=== PATIENT | male | born 1965 | race American Indian/Alaskan Native ===

== ENCOUNTER 2020-04-09 08:11 | Observation (INO) | payer OTHER ==
[2020-04-09] MEDS ORDERED: MORPHINE 4 MG/1 ML INJ IV ONE ×2 (08:51→11:34)
[2020-04-09] MEDS ORDERED: ONDANSETRON 4 MG/2 ML INJ IV ONE (08:51)
--- NOTE | 2020-04-09 08:57 | Emergency Department Report ---
ED Chest Pain HPI - General Chief Complaint: Chest Pain Stated Complaint: CP Time Seen by Provider: 04/09/20 08:28 Source: patient Mode of arrival: Ambulatory Limitations: No Limitations - History of Present Illness Initial Comments: This is a 55-year-old male who presents to the emergency department from home with complaint of lower chest and upper abdominal pain, shortness of breath, and nausea without vomiting. Patient says "I think it could be my pancreatitis again." The patient denies a history of gallstones, and admits to a history of some alcohol use, last drinking about 2 days ago. Overall the patient's symptoms have been going on for the past few weeks but worsened yesterday. He says that he was recently given divorce papers and that has "taken a toll on me." He has a past medical history of [id number] diabetes, hypert ension. Patient says that he took some Protonix, sucralfate and tramadol, that he was prescribed when he had previous pancreatitis, but it has not helped his symptoms. Currently he says that his pain is a 7 out of 10 in intensity. No obvious aggravating or alleviating factors. No recent travel or sick contacts at home. Patient mention that he was in his sister's presence in February and she was diagnosed with Covid, but he has not seen her since that time. - Related Data Allergies Allergy/AdvReac Type Severity Reaction Status Date / Time lisinopril Allergy Swelling Verified 04/09/20 08:14 Heart Score - HEART Score History: Slightly suspicious EKG: Normal Age: 45-65 Risk factors: 1-2 risk factors Troponin: < normal limit HEART Score: 2 - Critical Actions Critical Actions: 0-3 pts:0.9-1.7%risk of adverse cardiac event.Candidate for discharge ED Review of Systems ROS: Stated complaint: CP Other details as noted in HPI Comment: All other systems reviewed and negative Constitutional: denies: chills, fever Eyes: denies: eye pain, vision change ENT: denies: ear pain, throat pain Respiratory: shortness of breath. denies: cough Cardiovascular: chest pain. denies: palpitations Gastrointestinal: abdominal pain, nausea. denies: vomiting Genitourinary: denies: dysuria, discharge Musculoskeletal: denies: joint swelling, arthralgia Skin: denies: rash, lesions Neurological: denies: headache, weakness ED Past Medical Hx - Past Medical History Previous Medical History?: Yes Hx Hypertension: Yes Hx Diabetes: Yes - Surgical History Past Surgical History?: Yes Additional Surgical History: left finger - Social History Smoking Status: Never Smoker Substance Use Type: Alcohol ED Physical Exam - General Limitations: No Limitations - Other Other exam information: GENERAL: The patient is well-developed well-nourished. HENT: Normocephalic. Atraumatic. Patient has moist mucous membranes. EYES: Extraocular motions are intact. Pupils equal reactive to light bilaterally. NECK: Supple. Trachea is midline. CHEST/LUNGS: Clear to auscultation. There is no respiratory distress noted. HEART/CARDIOVASCULAR: Regular. There is no tachycardia. There is no murmur. ABDOMEN: Abdomen is soft. Upper abdominal tenderness to palpation. Patient has normal bowel sounds. SKIN: Skin is warm and dry. NEURO: The patient is awake, alert, and oriented. The patient is cooperative. The patient has no focal neurologic deficits. Normal speech. MUSCULOSKELETAL: There is no tenderness or deformity. ED Course Vital Signs 04/09/20 04/09/20 04/09/20 08:14 08:46 09:05 Temperature 97.9 F Pulse Rate 106 H 80 80 Respiratory 22 18 Rate Blood Pressure 154/97 Blood Pressure 150/88 [Left] O2 Sat by Pulse 99 100 Oximetry 04/09/20 09:38 Temperature Pulse Rate Respiratory 18 Rate Blood Pressure Blood Pressure [Left] O2 Sat by Pulse Oximetry JAKE score - Jake Score Age > 65: (0) No Aspirin use within the Past 7 Days: (0) No 3 or more CAD Risk Factors: (0) No 2 or more Angina events in past 24 hrs: (0) No Known CAD with more than 50% Stenosis: (0) No Elevated Cardiac Markers: (0) No ST Deviation Greater than 0.5mm: (0) No JAKE Score: 0 ED Medical Decision Making - Lab Data Result diagrams: 04/09/20 08:29 04/09/20 08:29 - EKG Data -: EKG Interpreted by Me EKG shows normal: sinus rhythm, axis, intervals, QRS complexes (Q waves to the inferior leads), ST-T waves Rate: normal - EKG Data When compared to previous EKG there are: previous EKG unavailable Interpretation: other (Sinus rhythm, normal axis, normal intervals, Q waves to the inferior leads.) - Radiology Data Radiology results: report reviewed, image reviewed interpreted by me: Chest x-ray does not show any acute process. There are no pleural effusions, obvious pneumonia and there is no pneumothorax. No significant cardiomegaly. Abdominal x-ray shows nonspecific nonobstructive bowel gas. CT ABDOMEN AND PELVIS WITH CONTRAST HISTORY: Abd pain, elevated lipase and LFTs. COMPARISON: None. TECHNIQUE: CT images of the abdomen and pelvis were obtained following administration of intravenous contrast. All CT scans at this location are performed using CT dose reduction for ALARA by means of automated exposure control. CONTRAST: 100 ml of intravenous contrast administered. FINDINGS: Lungs/bones: Lung bases are clear. No acute osseous abnormality. Abdomen/pelvis: There is severe hepatic steatosis with no focal mass identified. Considerable inflammatory changes seen about essentially the entire pancreas, with small fluid collection involving the tail measuring approximately 3.7 x 2.4 cm on image #58 of series #2. The remaining pancreatic parenchyma shows enhancement without clear necrosis. Several shoddy reactive lymph nodes are seen about the pancreas as well. No biliary ductal dilatation, CBD dilatation, pancreatic head mass, or obvious stone. The gallbladder, spleen, adrenals, kidneys, and proximal GI tract appear unremarkable except for mild secondary inflammatory change involving the duodenal C-loop. No bowel obstruction. There is a small fat- containing umbilical hernia. Urinary bladder is unremarkable. Prostate is slightly enlarged and indents the bladder base. No pelvic free fluid or acute colonic abnormality identified. IMPRESSION: 1. Acute pancreatitis with small fluid collection involving the pancreatic tail. No obvious obstructive stone or mass identified although there is severe hepatic steatosis. - Medical Decision Making This patient came in initially as a chest pain protocol, but during the HPI and physical examination the symptoms appear to be more upper abdominal. On top of that the patient says that it feels like previous pancreatitis. An EKG was done that does not have any morphology consistent with ST elevation myocardial infar ction. Chest and abdominal x-rays were completed and it did not show any acute process. Patient's labs do appear consistent with pancreatitis and/or gastrointestinal etiology as the patient has a lipase of 630 and elevated LFTs of [address] scan of the abdomen and pelvis with IV contrast shows acute pancreatitis with some fluid collection around the pancreatic tail. His vital signs have been reassuring throughout his ED course including being afebrile. He will be admitted to the hospital for further evaluation and treatment was accepted for admission by the hospitalist service. Critical Care Time: Yes Critical care time in (mins) excluding proc time.: 35 Critical care attestation.: If time is entered above; I have spent that time in minutes in the direct care of this critically ill patient, excluding procedure time. Critical care time was spent on this patient in doing his initial evaluation, multiple reevaluations, ordering and interpretation of labs and imaging, IV fluid resuscitation, IV analgesia, antiemetics, multiple discussions with the patient Critical Care Time: 35 minutes ED Disposition Clinical Impression: Transaminitis, Hepatic steatosis, Hyperglycemia Acute pancreatitis Qualifiers: Pancreatitis type: alcohol induced Acute pancreatitis complication: unspecified Qualified Code(s): K85.20 - Alcohol induced acute pancreatitis without necrosis or infection Hypertension Qualifiers: Hypertension type: essential hypertension Qualified Code(s): I10 - Essential (primary) hypertension Disposition: DC-09 OP ADMIT IP TO THIS HOSP Is pt being admited?: Yes Condition: Serious Referrals: [facility] [Other] - 3-5 Days Time of Disposition: 12:48
[2020-04-09 09:05] LABS: Basophils % (Auto) 0.5 % (0.0-1.8); Eosinophils % (Auto) 0.1 % (0.0-4.3); Hematocrit 45.8 % (35.5-45.6); Hemoglobin 15.7 gm/dl (11.8-15.2); Lymphocytes # (Auto) 0.8 K/mm3 (1.2-5.4); Lymphocytes % (Auto) 10.8 % (13.4-35.0); Mean Corpuscular HGB Conc 34 % (32-34); Mean Corpuscular Volume 89 fl (84-94); Monocytes # (Auto) 0.4 K/mm3 (0.0-0.8); Monocytes % (Auto) 5.8 % (0.0-7.3); Platelet Count 164 K/mm3 (140-440); Red Blood Count 5.16 M/mm3 (3.65-5.03)
--- NOTE | 2020-04-09 09:36 | XRay Report ---
ABDOMEN 3 VIEW(S) INDICATION / CLINICAL INFORMATION: Abd pain. Acute generalized abdominal pain COMPARISON: None available. FINDINGS: TUBES / LINES: None. BOWEL GAS PATTERN: Moderate colonic stool burden may be seen with constipation. No bowel obstruction. FREE AIR / EXTRALUMINAL GAS: None seen. ADDITIONAL FINDINGS: No significant additional findings. IMPRESSION: 1. Bowel findings as above. Signer Name: Vamsi Alex MD Signed: 04/09/2020 9:32 AM Workstation Name: [id number]
[2020-04-09 10:46] LABS: INR 0.96 (0.87-1.13)
[2020-04-09 10:56] LABS: BUN/Creatinine Ratio 8; Blood Urea Nitrogen 9 mg/dL (9-20); Calcium 9.7 mg/dL (8.4-10.2); Hemolysis Index 46
[2020-04-09] MEDS ORDERED: SODIUM CHLORIDE 0.9% 1000 ML 1,000 ML IV ONE (10:59)
[2020-04-09] MEDS ORDERED: INSULIN REGULAR, HUMAN 100 UNIT/ML 3ML VIAL IV SCH (11:00)
[2020-04-09 11:21] LABS: Albumin 4.6 g/dL (3.9-5); Bilirubin,Direct 0.2 mg/dL (0-0.2)
--- NOTE | 2020-04-09 11:31 | XRay Report ---
CHEST 1 VIEW INDICATION / CLINICAL INFORMATION: Chest Pain. COMPARISON: None available. FINDINGS: SUPPORT DEVICES: None. HEART / MEDIASTINUM: No significant abnormality. LUNGS / PLEURA: No significant pulmonary or pleural abnormality. No pneumothorax. ADDITIONAL FINDINGS: No significant additional findings. IMPRESSION: No acute pulmonary or pleural abnormality Signer Name: Obed Sutton MD FACR Signed: 04/09/2020 11:27 AM Workstation Name: [id number]
--- NOTE | 2020-04-09 12:43 | Cat Scan Report ---
CT ABDOMEN AND PELVIS WITH CONTRAST HISTORY: Abd pain, elevated lipase and LFTs. COMPARISON: None. TECHNIQUE: CT images of the abdomen and pelvis were obtained following administration of intravenous contrast. All CT scans at this location are performed using CT dose reduction for ALARA by means of automated exposure control. CONTRAST: 100 ml of intravenous contrast administered. FINDINGS: Lungs/bones: Lung bases are clear. No acute osseous abnormality. Abdomen/pelvis: There is severe hepatic steatosis with no focal mass identified. Considerable inflam matory changes seen about essentially the entire pancreas, with small fluid collection involving the tail measuring approximately 3.7 x 2.4 cm on image #58 of series #2. The remaining pancreatic parench yma shows enhancement without clear necrosis. Several shoddy reactive lymph nodes are seen about the pancreas as well. No biliary ductal dilatation, CBD dilatation, pancreatic head mass, or obvious ston e. The gallbladder, spleen, adrenals, kidneys, and proximal GI tract appear unremarkable except for mild secondary inflammatory change involving the duodenal C-loop. No bowel obstruction. There is a small fat-containing umbilical hernia. Urinary bladder is unremarkable. Prostate is slightly enlarged and indents the bladder base. No pelvi c free fluid or acute colonic abnormality identified. IMPRESSION: 1. Acute pancreatitis with small fluid collection involving the pancreatic tail. No obvious obstructi ve stone or mass identified although there is severe hepatic steatosis. Signer Name: Vamsi Alex MD Signed: 04/09/2020 12:38 PM Workstation Name: [id number]
--- NOTE | 2020-04-09 13:09 | History and Physical Report ---
History of Present Illness Date of examination: 04/09/20 Date of admission: 04/09/2020 Chief complaint: Abdominal pain and chest pain History of present illness: 55-year-old -[place]i male patient with significant past medical history of hypertension, diabetes mellitus, chronic alcohol use and with history of recurrent pancreatitis, presents to the emergency room with abdominal pain associated with nausea and some intermittent chest pain and generalized body pain intermittent for the last 1 to 2 weeks worse since yesterday. Patient has history of alcohol intake, quit for a few months but again started 2 days ago after he had some family issues. Mild nausea and vomiting and abdominal pain No history of fever no hematemesis melena or rectal bleeding Initial work-up in the emergency room is consistent with acute pancreatitis with elevated lipase and transaminases CT abdomen findings consistent with acute pancreatitis. Patient was also noted to have metabolic acidosis, hyponatremia and hyperglycemia. Past History Past Medical History: diabetes, GERD, hypertension, other (Chronic alcohol use, history of pancreatitis) Past Surgical History: Other (Finger surgery) Social history: alcohol abuse. denies: smoking, prescription drug abuse Family history: hypertension Medications and Allergies Allergies Allergy/AdvReac Type Severity Reaction Status Date / Time lisinopril Allergy Swelling Verified 04/09/20 08:14 Active Meds: Active Medications Insulin Human Regular (Humulin R) 4 unit IV ONCE CATIA Review of Systems Constitutional: weakness, no weight loss, no weight gain, no fever, no chills Ears, nose, mouth and throat: no nasal congestion, no nasal discharge Cardiovascular: chest pain, no orthopnea, no palpitations, no rapid/irregular heart beat, no edema, no shortness of breath Respiratory: no cough, no hemoptysis, no shortness of breath Gastrointestinal: abdominal pain, nausea, vomiting, no hematemesis, no melena Genitourinary Male: no dysuria, no hematuria Musculoskeletal: no neck stiffness, no neck pain, no myalgias, no arthritis Integumentary: no rash, no lesions Neurological: no seizures, no syncope, no tremors Psychiatric: no anxiety, no depression Endocrine: no cold intolerance, no polydipsia, no polyuria Hematologic/Lymphatic: no easy bruising, no easy bleeding Allergic/Immunologic: no urticaria, no allergic rhinitis Exam - Constitutional Vitals: Temp Pulse Resp BP Pulse Ox 97.9 F 80 18 150/88 100 04/09/20 08:14 10/22/20 09:05 04/09/20 09:38 04/09/20 08:46 04/09/20 08:46 General appearance: Present: mild distress, well-nourished - EENT Eyes: Present: PERRL, EOM intact - Neck Neck: Present: supple, normal ROM - Respiratory Respiratory effort: normal Respiratory: bilateral: diminished, negative: rales, rhonchi, wheezing - Cardiovascular Rhythm: regular Heart Sounds: Present: S1 & S2 - Extremities Extremities: no ischemia, No edema - Abdominal General gastrointestinal: Present: soft, tender (No guarding no rigidity), non- distended, normal bowel sounds - Integumentary Integumentary: Present: clear, warm - Musculoskeletal Musculoskeletal: strength equal bilaterally, generalized weakness - Psychiatric Psychiatric: appropriate mood/affect, cooperative - Neurologic Neurologic: moves all extremities HEART Score - HEART Score Troponin: Troponin T < 0.010 ng/mL (0.00-0.029) 04/09/20 11:13 Results - Labs CBC & Chem 7: 04/09/20 08:29 04/09/20 08:29 Labs: Abnormal lab results 04/09/20 04/09/20 04/09/20 Range/Units 08:29 08:29 08:52 RBC 5.16 H (3.65-5.03) M/mm3 Hgb 15.7 H (11.8-15.2) gm/dl Hct 45.8 H (35.5-45.6) % RDW 18.0 H (13.2-15.2) % Lymph % (Auto) 10.8 L (13.4-35.0) % Lymph # (Auto) 0.8 L (1.2-5.4) K/mm3 Seg Neutrophils % 82.8 H (40.0-70.0) % Sodium 133 L (137-145) mmol/L Chloride 89.3 L (98-107) mmol/L Carbon Dioxide 16 L (22-30) mmol/L Glucose 345 H (75-100) mg/dL AST 70 H (5-40) units/L ALT 70 H (7-56) units/L Lipase 635 H (13-60) units/L Assessment and Plan --Acute pancreatitis; N.p.o. status, IV fluids IV pain medications, IV Protonix GI consult Abdominal ultrasound --Type 2 diabetes mellitus hyperglycemia; Accu-Chek sliding scale coverage Check A1c, patient n.p.o. status Patient is on Metformin at home --Hyponatremia; IV hydration, monitor electrolytes --GERD; IV Protonix, supportive care --Transaminitis; Secondary to acute pancreatitis Trend transaminases --Chronic alcohol use; Strongly advised to quit alcohol intake --Monitor for alcohol withdrawal symptoms; [facility] protocol if needed --DVT prophylaxis; Lovenox Closely monitor the patient and adjust the management as needed
[2020-04-09] MEDS: MORPHINE 2 MG/1 ML INJ IV PRN ×2 (14:43→22:45)
[2020-04-09] MEDS: SODIUM CHLORIDE 0.9% 1000 ML 1,000 ML IV SCH (14:44)
[2020-04-09] MEDS: INSULIN LISPRO 100 UNIT/ML VIAL 3 mL SUB-Q SCH ×2 (14:54→22:53)
--- NOTE | 2020-04-09 15:30 | Ultrasound Report ---
ULTRASOUND ABDOMEN, COMPLETE INDICATION: Acute pancreatitis/eval for biliary pancreatitis. COMPARISON: CT abdomen/pelvis from today. FINDINGS: Pancreas: Poorly visualized on this exam because of overlying bowel gas. Abdominal Aorta: No significant abnormality. IVC: No significant abnormality. Liver: The liver measures 17.1 cm in length. Diffusely echogenic. Normal hepatopedal blood flow in t he main portal vein. Gallbladder: No significant abnormality. Bile ducts: No significant abnormality. Common bile duct measures 2 mm. Kidneys: Right: 10.3 cm in length. No significant abnormality. Left: 11 cm in length. No signific ant abnormality. Spleen: No significant abnormality. Free fluid: None. Additional Findings: None. IMPRESSION: 1. Hepatomegaly with diffusely echogenic appearance consistent with steatosis as was demonstrated on the CT. 2. Pancreas poorly visualized on this exam but was well visualized on the CT from today and shown to be inflamed. Signer Name: Vamsi Alex MD Signed: 04/09/2020 3:26 PM Workstation Name: [id number]
--- NOTE | 2020-04-09 16:09 | Gastroenterology Consultation ---
History of Present Illness - Reason for Consult Consult date: 04/09/20 Pancreatitis Requesting physician: ANIBAL LYMAN - History of Present Illness This is a pleasant 55-year-old gentleman with a medical history significant for alcohol use and with history of recurrent pancreatitis, presents to the emergency room with abdominal pain associated with nausea and some intermittent chest pain and generalized body pain intermittent for the last few days worse since yesterday. Patient reports prior history of alcohol use, he reports he stopped drinking last year, then he reports that his filed for divorce and he started drinking again few weeks ago. He reports drinking about a pint of vodka daily He reports abdominal pain that is severe, sharp, 10 out of 10, epigastric radiating to the entire abdomen and back, worse with eating and palpation, slightly better with pain medication, associated with nausea and this morning had vomiting but no vomiting since this morning, constant, worsening, duration days Labs demonstrate a significantly elevated lipase as well as CT consistent with acute pancreatitis Obtained/updated/reviewed patient's current medications Past History Past Medical History: diabetes, GERD, hypertension, other (Chronic alcohol use, history of pancreatitis) Past Surgical History: Other (Finger surgery) Social history: alcohol abuse. denies: smoking, prescription drug abuse Family history: hypertension Medications and Allergies Allergies Allergy/AdvReac Type Severity Reaction Status Date / Time lisinopril Allergy Swelling Verified 04/09/20 08:14 Active Meds: Active Medications Enoxaparin Sodium (Enoxaparin) 40 mg SUB-Q QDAY@2200 CATIA; Protocol Sodium Chloride (Nacl 0.9% 1000 Ml) 1,000 mls @ 125 mls/hr IV DIRECT CATIA Last Admin: 04/09/20 14:44 Dose: 125 mls/hr Documented by: Insulin Human Lispro (Humalog) 0 unit SUB-Q Q6H CATIA; Protocol Last Admin: 04/09/20 14:54 Dose: 4 unit Documented by: Insulin Human Regular (Humulin R) 4 unit IV ONCE CATIA Morphine Sulfate (Morphine) 2 mg IV Q4H PRN PRN Reason: Pain, Moderate (4-6) Last Admin: 04/09/20 14:43 Dose: 2 mg Documented by: Pantoprazole Sodium (Protonix) 40 mg IV QDAY CATIA Review of Systems - Review of Systems All systems: negative (10 Systems reviewed and negative except as mentioned ab ove in the history of present illness) Exam - Constitutional Vital Signs: Temp Pulse Resp BP Pulse Ox 97.9 F 80 18 150/88 100 04/09/20 08:14 04/09/20 09:05 04/09/20 09:38 04/09/20 08:46 04/09/20 08:46 General appearance: other (Patient appears mildly uncomfortable) - EENT Eyes: EOM intact - Neck Neck: supple - Respiratory Respiratory effort: normal - Cardiovascular Rhythm: regular - Gastrointestinal General gastrointestinal: Present: tender, other (Mildly distended) - Integumentary Integumentary: Present: dry - Neurologic Neurological: alert and oriented x3 - Psychiatric Psychiatric: appropriate mood/affect - Labs CBC & Chem 7: 04/09/20 08:29 04/09/20 08:29 Lab Results: Laboratory Results - last 24 hr 04/09/20 04/09/20 04/09/20 08:29 08:29 08:29 WBC 7.6 RBC 5.16 H Hgb 15.7 H Hct 45.8 H MCV 89 MCH 30 MCHC 34 RDW 18.0 H Plt Count 164 Lymph % (Auto) 10.8 L Stewart % (Auto) 5.8 Eos % (Auto) 0.1 Baso % (Auto) 0.5 Lymph # (Auto) 0.8 L Stewart # (Auto) 0.4 Eos # (Auto) 0.0 Baso # (Auto) 0.0 Seg Neutrophils % 82.8 H Seg Neutrophils # 6.3 PT 12.9 INR 0.96 Sodium 133 L Potassium 4.8 Chloride 89.3 L Carbon Dioxide 16 L Anion Gap 33 BUN 9 Creatinine 1.1 Estimated GFR > 60 BUN/Creatinine Ratio 8 Glucose 345 H POC Glucose Calcium 9.7 Total Bilirubin Direct Bilirubin Indirect Bilirubin AST ALT Alkaline Phosphatase Troponin T < 0.010 Total Protein Albumin Albumin/Globulin Ratio Lipase 04/09/20 04/09/20 04/09/20 08:52 11:13 15:07 WBC RBC Hgb Hct MCV MCH MCHC RDW Plt Count Lymph % (Auto) Stewart % (Auto) Eos % (Auto) Baso % (Auto) Lymph # (Auto) Stewart # (Auto) Eos # (Auto) Baso # (Auto) Seg Neutrophils % Seg Neutrophils # PT INR Sodium Potassium Chloride Carbon Dioxide Anion Gap BUN Creatinine Estimated GFR BUN/Creatinine Ratio Glucose POC Glucose 251 H Calcium Total Bilirubin 0.70 Direct Bilirubin 0.2 Indirect Bilirubin 0.5 AST 70 H ALT 70 H Alkaline Phosphatase 127 Troponin T < 0.010 Total Protein 7.8 Albumin 4.6 Albumin/Globulin Ratio 1.4 Lipase 635 H 04/09/20 15:11 WBC RBC Hgb Hct MCV MCH MCHC RDW Plt Count Lymph % (Auto) Stewart % (Auto) Eos % (Auto) Baso % (Auto) Lymph # (Auto) Stewart # (Auto) Eos # (Auto) Baso # (Auto) Seg Neutrophils % Seg Neutrophils # PT INR Sodium Potassium Chloride Carbon Dioxide Anion Gap BUN Creatinine Estimated GFR BUN/Creatinine Ratio Glucose POC Glucose Calcium Total Bilirubin Direct Bilirubin Indirect Bilirubin AST ALT Alkaline Phosphatase Troponin T < 0.010 Total Protein Albumin Albumin/Globulin Ratio Lipase Assessment and Plan Presentation and history consistent with acute pancreatitis due to alcohol abuse Mainstay of therapy is pain control (cont prn pain meds), hydration (patient already received a liter bolus of fluids increase his current fluids to 150 cc an hour, recheck hemoglobin in the morning to ensure hemoconcentration due to third spacing has improved), early refeeding if patient can tolerate (started pa mallorie on clear liquid diet) Regarding remaining differential diagnosis for acute pancreatitis, check triglycerides in the morning. Ultrasound ruled out cholelithiasis already Thank you for the consult we will continue to follow daily - Patient Problems (1) Acute pancreatitis Current Visit: Yes Status: Acute Qualifiers: Pancreatitis type: alcohol induced Acute pancreatitis complication: unspecified Qualified Code(s): K85.20 - Alcohol induced acute pancreatitis without necrosis or infection (2) Hepatic steatosis Current Visit: Yes Status: Acute (3) Transaminitis Current Visit: Yes Status: Acute
[2020-04-09] MEDS ORDERED: MORPHINE 4 MG/1 ML INJ ONE (16:16)
[2020-04-09] MEDS: ENOXAPARIN 40 MG/0.4 ML INJ SUB-Q SCH (22:38)
[2020-04-10] MEDS: SODIUM CHLORIDE 0.9% 1000 ML 1,000 ML IV SCH ×3 (01:22→17:45)
[2020-04-10] MEDS: MORPHINE 2 MG/1 ML INJ IV PRN ×5 (02:42→22:36)
[2020-04-10] MEDS: INSULIN LISPRO 100 UNIT/ML VIAL 3 mL SUB-Q SCH ×4 (05:55→22:35)
[2020-04-10 08:18] LABS: Hematocrit 49.1 % (35.5-45.6); Hemoglobin 16.3 gm/dl (11.8-15.2); Mean Corpuscular HGB Conc 33 % (32-34); Mean Corpuscular Volume 90 fl (84-94); Platelet Count 157 K/mm3 (140-440); Red Blood Count 5.48 M/mm3 (3.65-5.03); Red Cell Distribution Width 17.7 % (13.2-15.2)
[2020-04-10 08:27] LABS: Alanine Aminotransferase 43 units/L (7-56); Albumin 3.9 g/dL (3.9-5); BUN/Creatinine Ratio 8; Blood Urea Nitrogen 7 mg/dL (9-20); Calcium 9.1 mg/dL (8.4-10.2); Hemolysis Index 11
[2020-04-10] MEDS ORDERED: LACTATED RINGERS 1,000 ML IV ONE (09:00)
--- NOTE | 2020-04-10 09:00 | Gastroenterology Progress Note ---
Assessment and Plan I wrote an order for 1 L bolus of lactated Ringer's as patient remains intravascularly depleted. I advanced patient's diet to full liquid diet Please reassess patient later this morning after the bolus, if he is doing fine with no signs of fluid overload consider increasing the IV fluids to 200 cc an hour for the rest of the day and then returning to 150 cc an hour overnight. Continue as needed pain meds Please check daily comprehensive metabolic panel and CBC Regarding underlying cause, presentation and history consistent with acute pancreatitis due to alcohol abuse; I ordered labs for triglycerides for tomorrow morning to be thorough - Patient Problems (1) Acute pancreatitis Current Visit: Yes Status: Acute Qualifiers: Pancreatitis type: alcohol induced Acute pancreatitis complication: unspecified Qualified Code(s): K85.20 - Alcohol induced acute pancreatitis without necrosis or infection (2) Hepatic steatosis Current Visit: Yes Status: Acute (3) Transaminitis Current Visit: Yes Status: Acute Subjective Date of service: 04/10/20 Principal diagnosis: Acute alcoholic pancreatitis Interval history: Patient reports that his pain is mildly improved, now it is a 7 out of 10 epigastric sharp constant pain worse with eating better with pain medication radiating to the back duration days gradually improving associated with nausea Patient reports that there was an issue with his IV fluids and that for approximately 6 hours overnight he did not get any IV fluids; of note on labs today he is more hemoconcentrated this morning than he was last night despite the bolus and IV fluids Objective - Constitutional Vitals: Temp Pulse Resp BP Pulse Ox 98.2 F 102 H 20 141/85 98 04/10/20 04:00 04/10/20 04:00 04/10/20 04:00 04/10/20 04:00 04/10/20 04:00 General appearance: no acute distress - EENT Eyes: EOM intact - Neck Neck: supple - Respiratory Respiratory effort: normal - Cardiovascular Rhythm: regular - Gastrointestinal General gastrointestinal: Present: soft, tender - Labs CBC & Chem 7: 04/10/20 08:02 04/10/20 07:23 Labs: Laboratory Results - last 24 hr 04/09/20 04/09/20 04/09/20 08:29 08:29 08:29 WBC 7.6 RBC 5.16 H Hgb 15.7 H Hct 45.8 H MCV 89 MCH 30 MCHC 34 RDW 18.0 H Plt Count 164 Lymph % (Auto) 10.8 L [place] % (Auto) 5.8 Eos % (Auto) 0.1 Baso % (Auto) 0.5 Lymph # (Auto) 0.8 L [place] # (Auto) 0.4 Eos # (Auto) 0.0 Baso # (Auto) 0.0 Seg Neutrophils % 82.8 H Seg Neutrophils # 6.3 PT 12.9 INR 0.96 Sodium 133 L Potassium 4.8 Chloride 89.3 L Carbon Dioxide 16 L Anion Gap 33 BUN 9 Creatinine 1.1 Estimated GFR > 60 BUN/Creatinine Ratio 8 Glucose 345 H POC Glucose Calcium 9.7 Total Bilirubin Direct Bilirubin Indirect Bilirubin AST ALT Alkaline Phosphatase Troponin T < 0.010 Total Protein Albumin Albumin/Globulin Ratio Amylase Lipase 04/09/20 04/09/20 04/09/20 08:52 11:13 15:07 WBC RBC Hgb Hct MCV MCH MCHC RDW Plt Count Lymph % (Auto) [place] % (Auto) Eos % (Auto) Baso % (Auto) Lymph # (Auto) [place] # (Auto) Eos # (Auto) Baso # (Auto) Seg Neutrophils % Seg Neutrophils # PT INR Sodium Potassium Chloride Carbon Dioxide Anion Gap BUN Creatinine Estimated GFR BUN/Creatinine Ratio Glucose POC Glucose 251 H Calcium Total Bilirubin 0.70 Direct Bilirubin 0.2 Indirect Bilirubin 0.5 AST 70 H ALT 70 H Alkaline Phosphatase 127 Troponin T < 0.010 Total Protein 7.8 Albumin 4.6 Albumin/Globulin Ratio 1.4 Amylase Lipase 635 H 04/09/20 04/09/20 04/10/20 15:11 23:06 06:07 WBC RBC Hgb Hct MCV MCH MCHC RDW Plt Count Lymph % (Auto) [place] % (Auto) Eos % (Auto) Baso % (Auto) Lymph # (Auto) [place] # (Auto) Eos # (Auto) Baso # (Auto) Seg Neutrophils % Seg Neutrophils # PT INR Sodium Potassium Chloride Carbon Dioxide Anion Gap BUN Creatinine Estimated GFR BUN/Creatinine Ratio Glucose POC Glucose 207 H 226 H Calcium Total Bilirubin Direct Bilirubin Indirect Bilirubin AST ALT Alkaline Phosphatase Troponin T < 0.010 Total Protein Albumin Albumin/Globulin Ratio Amylase Lipase 04/10/20 04/10/20 04/10/20 07:23 08:02 08:31 WBC 19.5 H RBC 5.48 H Hgb 16.3 H Hct 49.1 H MCV 90 MCH 30 MCHC 33 RDW 17.7 H Plt Count 157 Lymph % (Auto) [place] % (Auto) Eos % (Auto) Baso % (Auto) Lymph # (Auto) [place] # (Auto) Eos # (Auto) Baso # (Auto) Seg Neutrophils % Seg Neutrophils # PT INR Sodium 133 L Potassium 4.2 Chloride 97.7 L Carbon Dioxide 17 L Anion Gap 23 BUN 7 L Creatinine 0.9 Estimated GFR > 60 BUN/Creatinine Ratio 8 Glucose 254 H POC Glucose 208 H Calcium 9.1 Total Bilirubin 0.60 Direct Bilirubin Indirect Bilirubin AST 37 ALT 43 Alkaline Phosphatase 105 Troponin T Total Protein 7.4 Albumin 3.9 Albumin/Globulin Ratio 1.1 Amylase 267 H Lipase 299 H
[2020-04-10] MEDS: PANTOPRAZOLE 40 MG INJ IV SCH (09:09)
--- NOTE | 2020-04-10 14:44 | Progress Note ---
Assessment and Plan Assessment and plan: --Acute pancreatitis; With acute abdominal pain Patient does not have guarding or rigidity GI started full liquid diet Continue IV fluids, pain medications I will give Protonix Abdominal ultrasound findings reviewed GI evaluation noted and appreciated Continue supportive care --Type 2 diabetes mellitus hyperglycemia; Accu-Chek sliding scale coverage Check A1c, clear liquids Long-acting insulin Novolin 70/30 12 units twice daily, 6 units 1 dose now --Hyponatremia; IV hydration, monitor electrolytes --GERD; IV Protonix, supportive care --Transaminitis; Secondary to acute pancreatitis Trend transaminases --Chronic alcohol use; Strongly advised to quit alcohol intake --Monitor for alcohol withdrawal symptoms; CIWA protocol if needed --DVT prophylaxis; Lovenox Closely monitor the patient and adjust the management as needed Closely monitor the patient and adjust management as needed GI evaluation and recommendations noted and appreciated Possible discharge in 1 to 2 days if stable History Interval history: I have seen and examined the patient at the bedside this morning Patient's chart and medications reviewed Patient continues to have mild abdominal pain Patient requests more pain medications Tolerating clear liquids recommended by GI No evidence of alcohol withdrawal symptoms Vital signs noted Hospitalist Physical - Constitutional Vitals: Temp Pulse Resp BP Pulse Ox 98.9 F 114 H 20 166/110 98 04/10/20 11:34 04/10/20 11:34 04/10/20 12:43 04/10/20 11:34 04/10/20 11:34 General appearance: Present: no acute distress, well-nourished - EENT Eyes: Present: PERRL, EOM intact - Neck Neck: Present: supple, normal ROM - Respiratory Respiratory effort: normal Respiratory: bilateral: diminished, rhonchi, negative: rales, wheezing - Cardiovascular Rhythm: regular Heart Sounds: Present: S1 & S2 - Extremities Extremities: no ischemia, No edema - Abdominal General gastrointestinal: soft, non-tender, non-distended, normal bowel sounds - Integumentary Integumentary: Present: clear, warm - Psychiatric Psychiatric: appropriate mood/affect, cooperative - Neurologic Neurologic: moves all extremities HEART Score - HEART Score EKG: Normal Age: 45-65 Risk factors: 1-2 risk factors Troponin: Troponin T < 0.010 ng/mL (0.00-0.029) 04/09/20 15:11 Troponin: < normal limit - Critical Actions Critical Actions: 0-3 pts:0.9-1.7%risk of adverse cardiac event.Candidate for discharge Results - Labs CBC & Chem 7: 04/10/20 08:02 04/10/20 07:23 Labs: Laboratory Last Values WBC 19.5 K/mm3 (4.5-11.0) H 04/10/20 08:02 RBC 5.48 M/mm3 (3.65-5.03) H 04/10/20 08:02 Hgb 16.3 gm/dl (11.8-15.2) H 04/10/20 08:02 Hct 49.1 % (35.5-45.6) H 04/10/20 08:02 MCV 90 fl (84-94) 04/10/20 08:02 MCH 30 pg (28-32) 04/10/20 08:02 MCHC 33 % (32-34) 04/10/20 08:02 RDW 17.7 % (13.2-15.2) H 04/10/20 08:02 Plt Count 157 K/mm3 (140-440) 04/10/20 08:02 Lymph % (Auto) 10.8 % (13.4-35.0) L 04/09/20 08:29 [place] % (Auto) 5.8 % (0.0-7.3) 04/09/20 08:29 Eos % (Auto) 0.1 % (0.0-4.3) 04/09/20 08:29 Baso % (Auto) 0.5 % (0.0-1.8) 04/09/20 08:29 Lymph # (Auto) 0.8 K/mm3 (1.2-5.4) L 04/09/20 08:29 [place] # (Auto) 0.4 K/mm3 (0.0-0.8) 04/09/20 08:29 Eos # (Auto) 0.0 K/mm3 (0.0-0.4) 04/09/20 08:29 Baso # (Auto) 0.0 K/mm3 (0.0-0.1) 04/09/20 08:29 Seg Neutrophils % 82.8 % (40.0-70.0) H 04/09/20 08:29 Seg Neutrophils # 6.3 K/mm3 (1.8-7.7) 04/09/20 08:29 PT 12.9 Sec. (12.2-14.9) 04/09/20 08:29 INR 0.96 (0.87-1.13) 04/09/20 08:29 Sodium 133 mmol/L (137-145) L 04/10/20 07:23 Potassium 4.2 mmol/L (3.6-5.0) 04/10/20 07:23 Chloride 97.7 mmol/L (98-107) L 04/10/20 07:23 Carbon Dioxide 17 mmol/L (22-30) L 04/10/20 07:23 Anion Gap 23 mmol/L 04/10/20 07:23 BUN 7 mg/dL (9-20) L 04/10/20 07:23 Creatinine 0.9 mg/dL (0.8-1.3) 04/10/20 07:23 Estimated GFR > 60 ml/min 04/10/20 07:23 BUN/Creatinine Ratio 8 % 04/10/20 07:23 Glucose 254 mg/dL (75-100) H 04/10/20 07:23 POC Glucose 220 mg/dL (70-105) H 04/10/20 11:51 Calcium 9.1 mg/dL (8.4-10.2) 04/10/20 07:23 Total Bilirubin 0.60 mg/dL (0.1-1.2) 04/10/20 07:23 Direct Bilirubin 0.2 mg/dL (0-0.2) 04/09/20 08:52 Indirect Bilirubin 0.5 mg/dL 04/09/20 08:52 AST 37 units/L (5-40) 04/10/20 07:23 ALT 43 units/L (7-56) 04/10/20 07:23 Alkaline Phosphatase 105 units/L (35-129) 04/10/20 07:23 Troponin T < 0.010 ng/mL (0.00-0.029) 04/09/20 15:11 Total Protein 7.4 g/dL (6.3-8.2) 04/10/20 07:23 Albumin 3.9 g/dL (3.9-5) 04/10/20 07:23 Albumin/Globulin Ratio 1.1 % 10/23/20 07:23 Amylase 267 units/L (27-131) H 04/10/20 07:23 Lipase 299 units/L (13-60) H 04/10/20 07:23 [place]/IV: Voiding Method Urinal IV Catheter Type [Right INT / Saline Lock Antecubital] Active Medications - Current Medications Current Medications: Generic Name Dose Route Start Last Admin Trade Name Freq PRN Reason Stop Dose Admin Enoxaparin Sodium 40 mg 04/09/20 22:00 04/09/20 22:38 Enoxaparin SUB-Q 40 mg QDAY@2200 CATIA Administration Protocol Sodium Chloride 1,000 mls @ 150 mls/hr 04/09/20 13:15 04/10/20 10:48 Nacl 0.9% 1000 Ml IV 150 mls/hr DIRECT CATIA Administration Insulin Human Lispro 0 unit 04/09/20 14:00 04/10/20 09:28 Humalog SUB-Q 6 unit Q6H CATIA Administration Protocol Insulin Human Regular 4 unit 04/09/20 11:00 04/09/20 09:40 Humulin R IV 4 unit ONCE CATIA Administration Morphine Sulfate 2 mg 04/09/20 13:13 04/10/20 12:43 Morphine IV 2 mg Q4H PRN Administration Pain, Moderate (4-6) Pantoprazole Sodium 40 mg 04/10/20 10:00 04/10/20 09:09 Protonix IV 40 mg QDAY CATIA Administration Nutrition/Malnutrition Assess - Dietary Evaluation Nutrition/Malnutrition Findings: Nutrition Notes Start: 04/10/20 13:04 Freq: Status: Active Protocol: Document 04/10/20 13:04 AL (Rec: 04/10/20 13:19 AL [email or web address]) Co-Sign 04/10/20 13:04 Nutrition Notes Need for 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 Pt reports tolerating diet well. No problems with appetite. Pt reports eating less than 50% of his food 2 consecutive days this week. Appetite varies. Pt open to trying ONS Percent of energy/protein needs met: 66%/56% Burn Absent Trauma Absent GI Symptoms Nausea,Vomiting Current % PO Fair (50-74%) Minimum of two criteria No Interpretation of Weight Loss (severe) >5% in 1 month #1 Nutrition Diagnosis Predicted suboptimal energy intake Etiology N/V, GERD, pancreatitis As Evidenced by Signs and Symptoms wt loss of 8 lbs in past month and a half, current diet Is patient on ventilator? No Is Patient Ambulatory and/or Out of Bed Yes REE-([facility]-ambulatory/OOB) [ 2097.875 [id number]] Kcal/Kg value to use for calculation 21 Approximate Energy Requirements Using 1745 kcal/Kg Calculation Used for Recommendations Kcal/kg Additional Notes Pro: 66-85 g Pro/day (.8-1.0 g /kg) Fluid: 1 ml/kcal Nutrition Intervention Change Diet Order: Continue Add Supplement/Snack (indicate name/kcal Glucerna BID /protein ) Provides kCal: 440 Provides Protein (gm) 20 Goal #1 Meet 75% of total energy and protein needs Anticipated Discharge Needs: Cardiac/Consistent CHO diet Follow-Up By: 04/14/20 Additional Comments F/U for diet and ONS inakes
[2020-04-10] MEDS ORDERED: INSULIN NPH/REGULAR 70/30 INJ SUB-Q ONE (20:00)
[2020-04-10] MEDS: ENOXAPARIN 40 MG/0.4 ML INJ SUB-Q SCH (22:36)
[2020-04-11] MEDS: INSULIN LISPRO 100 UNIT/ML VIAL 3 mL SUB-Q SCH ×3 (03:20→13:02)
[2020-04-11] MEDS: MORPHINE 2 MG/1 ML INJ IV PRN (04:07)
[2020-04-11] MEDS: SODIUM CHLORIDE 0.9% 1000 ML 1,000 ML IV SCH (07:23)
[2020-04-11] MEDS ORDERED: INSULIN NPH/REGULAR 70/30 INJ SUB-Q SCH (08:00)
--- NOTE | 2020-04-11 09:59 | Gastroenterology Progress Note ---
Assessment and Plan 1. GI: alcohol pancreatitis w/ signs improvement - pt reports not taking pain meds, tolerating po - advance diet to soft - follow labs including CRP if in hospital - alcohol abstinence - pt wants to go home and reports will sign out AMA if not dc'ed - will like to see pt tolerate soft diet before dc - will follow Subjective Date of service: 04/11/20 Principal diagnosis: Acute alcoholic pancreatitis Interval history: pt reports tolerating full liquid diet, wants to go home Objective - Constitutional Vitals: Temp Pulse Resp BP Pulse Ox 99.2 F 101 H 18 146/93 95 04/10/20 21:41 04/10/20 21:41 04/10/20 21:41 04/10/20 21:41 04/10/20 21:41 General appearance: no acute distress - EENT Eyes: PERRL - Respiratory Respiratory: bilateral: CTA - Cardiovascular Rhythm: regular Heart Sounds: Present: S1 & S2 - Gastrointestinal General gastrointestinal: Present: soft, non-tender, non-distended - Labs CBC & Chem 7: 04/10/20 08:02 04/10/20 07:23 Labs: Laboratory Results - last 24 hr 04/10/20 04/10/20 04/10/20 11:51 17:01 22:15 POC Glucose 220 H 245 H 198 H 04/11/20 04/11/20 06:46 08:22 POC Glucose 147 H 177 H
[2020-04-11] MEDS: PANTOPRAZOLE 40 MG INJ IV SCH (10:13)
[2020-04-11 14:29] VITALS: BP 149/89
--- NOTE | 2020-04-11 14:59 | Discharge Summary ---
Providers - Providers Date of Admission: 04/09/20 17:14 Date of discharge: 04/11/20 Attending physician: ANIBAL LYMAN 04/09/20 13:22 Consult to Physician [CONS] Routine Comment: Consulting Provider: WILLIAM GLYNN Physician Instructions: Reason For Exam: Acute pancreatitis Hospitalization Reason for admission: Acute pancreatitis/abdominal pain Condition: Fair Pertinent studies: Chest x-ray Abdominal x-ray CT abdomen and pelvis Abdominal ultrasound Hospital course: 55-year-old -[place] male patient with significant past medical history of hypertension, diabetes mellitus, chronic alcohol use and with history of recurrent pancreatitis, was admitted to the emergency room with abdominal pain associated with nausea and some intermittent chest pain and generalized body pain initial work-up is consistent with acute pancreatitis CT abdomen findings confirmed with acute pancreatitis. Patient was also noted to have metabolic acidosis, hyponatremia and hyperglycemia. Admitted to the hospital symptomatically managed. Placed on n.p.o. status with IV fluids IV pain medications and supportive care subsequently evaluated by GI, received conservative management. Diet started with clear liquids slowly advance as tolerated Patient's symptoms significantly improved pancreatic enzyme levels slowly but gradually improved Patient counseled and advised to quit alcohol intake and also seek alcohol rehabilitation program. Today patient is comfortable no new complaints vital signs stable Physical examination is unremarkable Hemodynamically and clinically stable at discharge --Acute pancreatitis; GI evaluated the patient Diet advance from liquid diet as tolerated Continued Protonix Abdominal ultrasound findings reviewed GI evaluation noted and appreciated Continue supportive care --Type 2 diabetes mellitus hyperglycemia; Accu-Chek sliding scale coverage Check A1c, clear liquids Long-acting insulin Novolin 70/30 12 units twice daily, 6 units 1 dose now --Hyponatremia;IV hydration, monitor electrolytes --GERD;IV Protonix, supportive care --Transaminitis; acute pancreatitis/trend transaminases --Chronic alcohol use;Strongly advised to quit alcohol intake --Monitor for alcohol withdrawal symptoms; [facility] protocol if needed --DVT prophylaxis; Lovenox Stable at discharge Disposition: DC-01 TO HOME OR SELFCARE Time spent for discharge: 32 min Core Measure Documentation - Palliative Care Palliative Care/ Comfort Measures: Not Applicable - Core Measures Any of the following diagnoses?: none Exam - Constitutional Vitals: Temp Pulse Resp BP Pulse Ox 99.4 F 99 H 20 149/89 96 04/11/20 11:49 04/11/20 11:49 04/11/20 11:49 04/11/20 11:49 04/11/20 11:49 General appearance: Present: no acute distress, well-nourished - EENT Eyes: Present: PERRL, EOM intact - Neck Neck: Present: supple, normal ROM - Respiratory Respiratory effort: normal Respiratory: bilateral: diminished, negative: rales, rhonchi, wheezing - Cardiovascular Rhythm: regular Heart Sounds: Present: S1 & S2 - Extremities Extremities: no ischemia, No edema - Abdominal General gastrointestinal: Present: soft, non-tender, non-distended, normal bowel sounds - Integumentary Integumentary: Present: clear, warm - Musculoskeletal Musculoskeletal: strength equal bilaterally - Psychiatric Psychiatric: appropriate mood/affect, cooperative - Neurologic Neurologic: moves all extremities Plan Activity: advance as tolerated Diet: diabetic, other (Soft diet advance as tolerated) Additional Instructions: Advised to continue your home medications Metformin and amlodipine as before. Strongly advised to comply with medications diet and follow-up visits. GI recommend soft diet advance as tolerated. Advised to follow GI within 1 week. Advised to quit alcohol intake, and seek alcohol rehabilitation if needed Follow up with: JOSE HAYS [Other] - 3-5 Days JACKIE LINARES MD [Staff Physician] - 7 Days Prescriptions: Ciprofloxacin HCl [Ciprofloxacin TAB] 500 mg PO Q12HR #20 tab metroNIDAZOLE [Flagyl] 500 mg PO Q8HR #30 tablet oxyCODONE /ACETAMINOPHEN [Percocet 5/325] 1 tab PO BID #10 tablet Pantoprazole [Protonix] 40 mg PO QDAY #30 tablet
[2020-04-11 15:58] LABS: Chol/HDL Ratio 2.89 %
== END 2020-04-11 17:55 | disposition home or self-care (01) ==
LOC: ED 08:11 → 3A 17:14
PROVIDERS: ADMIT Internal Medicine; ATTEND Internal Medicine
DX: K85.90 Acute pancreatitis without necrosis or infection, unspecified (principal); E11.65 Type 2 diabetes mellitus with hyperglycemia; E87.1 Hypo-osmolality and hyponatremia; I10 Essential (primary) hypertension; K21.9 Gastro-esophageal reflux disease without esophagitis; F10.239 Alcohol dependence with withdrawal, unspecified; R74.01 Elevation of levels of liver transaminase levels; K76.0 Fatty (change of) liver, not elsewhere classified; Z98.890 Other specified postprocedural states; Z79.4 Long term (current) use of insulin
CPT/HCPCS: 36415; 71045; 74019; 74177; 76700; 80048; 80053; 80061; 80076; 82150; 82962; 83690; 84484; 85025; 85027; 85610; 93005; 96361; 96372; 96374; 96375; 96376; 99291; C9113; G0378; J1650; J2270; J2405; J7030; J7120; Q9967; J1815